=== PATIENT | female | born 1935 | race African-American/Black ===

== ENCOUNTER 2018-05-27 08:57 | Outpatient (CLI) | payer MEDICARE, MEDICAID | END 2018-05-27 08:58 | disposition home or self-care (01) | LOC: BICULT 08:57 | PROVIDERS: ATTEND Family Medicine | DX: R05 Cough (principal); D64.9 Anemia, unspecified; K76.89 Other specified diseases of liver; N28.1 Cyst of kidney, acquired | CPT/HCPCS: 71046; 76700 ==